=== PATIENT | female | born 1940 | race Caucasian/White ===

== ENCOUNTER 2021-03-26 12:51 | Emergency (ER) | payer MEDICARE, SELFPAY ==
[2021-03-26] VITALS (12 sets, daily range): BP systolic 127–165; BP diastolic 59–107; PULSE 61–78; RESP 15–18; TEMP 36.8; O2SAT 91–98; BMI 26.2
--- NOTE | 2021-03-26 13:18 | XR_ITS ---
PROCEDURE INFORMATION: Exam: XR Left Hand Exam date and time: 03/26/2021 1:18 PM Age: 80 years old Clinical indication: Pain; Hand; Left TECHNIQUE: Imaging protocol: XR Left hand. Views: 3 or more views. COMPARISON: No relevant prior studies available. FINDINGS: Bones/joints: Joint space narrowing in the PIP joints and DIP joints of the fingers and IP joint of the thumb consistent with degenerative changes. Degenerative changes in the radiocarpal joint. There is no evidence of acute fracture.There is no evidence of malalignment or dislocation. Soft tissues: Normal. IMPRESSION: There is no evidence of acute fracture.There is no evidence of malalignment or dislocation.
--- NOTE | 2021-03-26 13:19 | XR_ITS ---
PROCEDURE INFORMATION: Exam: XR Left Wrist Exam date and time: 03/26/2021 1:19 PM Age: 80 years old Clinical indication: Pain; Wrist; Left TECHNIQUE: Imaging protocol: XR Left wrist. Views: 3 or more views. COMPARISON: No relevant prior studies available. FINDINGS: Bones/joints: Degenerative changes in the carpal bones and thumb carpometacarpal joint. There is no evidence of acute fracture.There is no evidence of malalignment or dislocation. Soft tissues: Normal. IMPRESSION: There is no evidence of acute fracture.There is no evidence of malalignment or dislocation.
--- NOTE | 2021-03-26 13:19 | XR_ITS ---
PROCEDURE INFORMATION: Exam: XR Left Forearm Exam date and time: 03/26/2021 1:19 PM Age: 80 years old Clinical indication: Pain; Lower or forearm; Left TECHNIQUE: Imaging protocol: XR Left forearm. Views: 2 views. COMPARISON: No relevant prior studies available. FINDINGS: Bones/joints: There is no evidence of acute fracture.There is no evidence of malalignment or dislocation. Soft tissues: Normal. IMPRESSION: There is no evidence of acute fracture.There is no evidence of malalignment or dislocation.
--- NOTE | 2021-03-26 13:34 | [facility].EDGENADL ---
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 You have been given a prescription for short course of steroids as well. Please take as prescribed. Continue to closely monitor your condition and if your condition worsens or any other concerns arise, please return promptly to the nearest emergency department for reassessment. Continue to look out for symptoms such as worsening pain, increasing area of pain, increasing area of redness, systemic symptoms such as fever, nausea, vomiting, shortness of breath. Please see your primary care physician Dr. Stern on Saturday to assess for improvement. Referrals: Val Patricio [Primary Care Provider] - - Critical Care Critical Care Time: No Attestation: On 03/26/21, the high probability of a clinically significant, sudden or life threatening deterioration of the following system(s) required my full and direct attention, intervention and personal management. The time I documented below is in addition to time spent performing reported procedures but includes the following listed in this critical care notation. Medical Decision Making - Medical Records Medical records reviewed: Yes: I reviewed the patient's medical records. - Xander Inquiry Pt receiving controlled substance: No Vital Signs: 03/26/21 12:53 03/26/21 13:30 03/26/21 14:00 Temperature 98.2 F Temperature Source Oral Pulse Rate 73 68 Pulse Rate [Right Radial] 78 Respiratory Rate 18 15 Blood Pressure 127/70 130/78 Blood Pressure [Right Arm] 162/107 H Blood Pressure Mean Blood Pressure Mean [Right Arm] 125 Blood Pressure Source [Right Arm] Automatic Cuff Blood Pressure Position [Right Arm] Sitting 02 Sat by Pulse Oximetry 91 L 92 L 98 Oxygen Delivery Method Room Air 03/26/21 14:56 03/26/21 14:59 03/26/21 15:30 Temperature Temperature Source Pulse Rate 70 66 66 Pulse Rate [Right Radial] Respiratory Rate 18 Blood Pressure 164/83 H 155/85 H 142/104 H Blood Pressure [Right Arm] Blood Pressure Mean 100 Blood Pressure Mean [Right Arm] Blood Pressure Source [Right Arm] Blood Pressure Position [Right Arm] 02 Sat by Pulse Oximetry 93 L 95 95 Oxygen Delivery Method 03/26/21 15:32 03/26/21 16:00 03/26/21 16:31 Temperature Temperature Source Pulse Rate 68 74 64 Pulse Rate [Right Radial] Respiratory Rate 15 16 Blood Pressure 159/79 H 165/88 H 137/59 L Blood Pressure [Right Arm] Blood Pressure Mean 103 112 Blood Pressure Mean [Right Arm] Blood Pressure Source [Right Arm] Blood Pressure Position [Right Arm] 02 Sat by Pulse Oximetry 95 97 97 Oxygen Delivery Method 03/26/21 17:00 03/26/21 17:30 Temperature Temperature Source Pulse Rate 61 67 Pulse Rate [Right Radial] Respiratory Rate 15 Blood Pressure 132/61 133/100 H Blood Pressure [Right Arm] Blood Pressure Mean 84 Blood Pressure Mean [Right Arm] Blood Pressure Source [Right Arm] Blood Pressure Position [Right Arm] 02 Sat by Pulse Oximetry 97 96 Oxygen Delivery Method - Lab Data Lab results reviewed: Yes: I reviewed the patient's lab results. Lab Results 03/26/21 13:45: WBC 8.7, RBC 3.62 L, Hgb 10.9 L, Hct 34.1 L, MCV 94.1, MCH 30.2, MCHC 32.1, RDW 15.0, Plt Count 283, MPV 7.4, Neut % (Auto) 66.3, Lymph % (Auto) 23.1, [place] % (Auto) 9.9 H, Eos % (Auto) 0.4, Baso % (Auto) 0.2, Neut # (Auto) 5.8, Lymph # (Auto) 2.0, [place] # (Auto) 0.9, Eos # (Auto) 0.0, Baso # (Auto) 0.0, ESR 47 H 03/26/21 13:45: Sodium 132 L, Potassium 4.2, Chloride 100, Carbon Dioxide 26, Anion Gap 10.2, BUN 17, Creatinine 1.00, Estimated Creat Clear 52, Estimated GFR 54 L, Est GFR ( Amer) 65, Glucose 11
[2021-03-26 14:21] LABS: Basophils % 0.2 % (0.1-2.0); Eosinophils % 0.4 % (0.1-12.0); Hematocrit 34.1 % (37.0-47.0); Hemoglobin 10.9 g/dL (12.2-16.2); Lymphocytes % 23.1 % (10-50); Mean Corpuscular HGB Conc 32.1 g/dL (31.8-35.4); Mean Corpuscular Hemoglobin 30.2 pg (27.0-31.2); Mean Corpuscular Volume 94.1 fl (81-99); Mean Platelet Volume 7.4 fl (7.4-10.4); Monocytes # 0.9 K/mm3 (0.1-1.0); Monocytes % 9.9 % (1.7-9.3); Neutrophils # 5.8 K/mm3 (1.8-7.8); Neutrophils % 66.3 % (37.0-80.0); Platelet Count 283 K/mm3 (142-424); Red Blood Count 3.62 M/mm3 (4.20-5.40); White Blood Count 8.7 K/mm3 (4.8-10.8)
[2021-03-26 14:23] LABS: Chloride 100 mmol/L (98-107); Sodium 132 mmol/L (136-145)
[2021-03-26 14:24] LABS: Potassium 4.2 mmoL/L (3.5-5.1)
[2021-03-26 14:26] LABS: Alanine Aminotransferase 16 U/L (12-78); Albumin Level 3.9 g/dl (3.5-5.0); Alkaline Phosphatase 102 U/L (38-126); Anion Gap 10.2 mEq/L (5-15); Aspartate Amino Transferase 35 U/L (14-36); Bilirubin,Total 0.8 mg/dl (0.2-1.3); Blood Urea Nitrogen 17 mg/dl (7-17); Carbon Dioxide 26 mmol/L (22.0-30.0); Creatinine Clearance Estimated 52 mL/min (50-200); Estimated Glomerular Filt Rate 54 ml/min (>60); GFR (African American) 65 ML/MIN (>60); Globulin 3.9 g/dL (1.3-3.2); Total Protein,Serum 7.8 g/dl (6.3-8.2)
[2021-03-26 14:27] LABS: Calcium 9.2 mg/dl (8.4-10.2); Glucose 112 mg/dl (74-100)
[2021-03-26 14:32] LABS: C-Reactive Protein 60.6 mg/L (0-4)
[2021-03-26 14:59] LABS: Erythrocyte Sedimentation Rate 47 mm/hr (0-30)
--- NOTE | 2021-03-26 15:35 | PC.NURSE ---
call placed to [facility]. Awaiting physician to [facility].
--- NOTE | 2021-03-26 15:46 | PC.NURSE ---
Dr. Tabares with [facility] on phone speaking with Dr. Serrano at this time.
--- NOTE | 2021-03-26 15:51 | CT_ITS ---
PROCEDURE INFORMATION: Exam: CT Left Upper Extremity With Contrast, Hand Exam date and time: 03/26/2021 3:51 PM Age: 80 years old Clinical indication: Pain; Hand; Left; Additional info: Evaluate for flexor tenosynovitis TECHNIQUE: Imaging protocol: CT of the Left upper extremity with intravenous contrast was performed. Exam focused on the hand. Radiation optimization: All CT scans at this facility use at least one of these dose optimization techniques: automated exposure control; mA and/or kV adjustment per patient size (includes targeted exams where dose is matched to clinical indication); or iterative reconstruction. Contrast material: ISOVUE; Contrast volume: 75 ml; Contrast route: IV; COMPARISON: CR XR HAND LT MIN 3V 03/26/2021 1:43 PM FINDINGS: Bones/joints: No fracture or subluxation. Mild osteoarthritis. Soft tissues: Soft tissue detail is limited on even contrast-enhanced CT with further limitation by degradation of the images related to positioning by the patient's side. There is no visualized gross tendon pathology or visualized abnormal fluid collection to help confirm tenosynovitis. If this remains clinical concern either MRI or if that is not possible targeted ultrasound of the regions and question would be recommended. IMPRESSION: 1. No fracture or subluxation. 2. Soft tissue detail is limited on even contrast-enhanced CT with further limitation by degradation of the images related to positioning by the patient's side. There is no visualized gross tendon pathology or visualized abnormal fluid collection to help confirm tenosynovitis. If this remains the clinical concern either MRI or if that is not possible targeted ultrasound of the regions in question would be recommended.
== END 2021-03-26 18:13 | disposition home or self-care (01) ==
PROVIDERS: Emergency Provider Emergency Medicine; PCP Family Medicine
DX: M10.042 Idiopathic gout, left hand (principal)
CPT/HCPCS: 73090; 73110; 73130; 73201; 80053; 85025; 85651; 86140; 96374; 99282; Q9967